=== PATIENT | male | born 1960 | race African-American/Black ===

== ENCOUNTER 2021-03-15 18:08 | Inpatient (IN) | payer OTHER ==
[~2021-03-15] VITALS: Ht 188 cm; Wt 104.3 kg
[~2021-03-15 18:08] MED LIST: CARV12.545 PO; FURO80TA87 PO; HYDR-4133 PO
[2021-03-15 19:52] LABS: BASOPHILS % 1.4 % (0.0-2.0); EOSINOPHILS % 0.2 % (0.0-5.0); HEMATOCRIT. 29.4 % (42.0-52.0); HEMOGLOBIN. 8.8 g/dL (14.0-18.0); LYMPHOCYTES % 22.6 % (20.0-50.0); MEAN CORPUSCULAR HEMOGLOBIN 19.2 pg (28.0-32.0); MEAN CORPUSCULAR VOLUME 64.3 fL (80.0-94.0); MEAN PLATELET VOLUME 8.6 fl (7.4-10.4); MONOCYTES % 12.5 % (2.0-8.0); NEUTROPHILS % 63.3 % (40.0-76.0); PLATELET 196 x1000/uL (130-400); RED BLOOD CELL COUNT 4.58 mill/uL (4.7-6.1); RED CELL DISTRIBUTION WIDTH 25.2 % (11.6-14.6)
[2021-03-15 19:59] LABS: CHLORIDE 101 mEq/L (98-107)
[2021-03-15 20:24] LABS: PLATELET ESTIMATE NORMAL
[2021-03-15 20:41] LABS: CLARITY URINE CLEAR (CLEAR); COLOR URINE DARK YELLOW (YELLOW); KETONES URINE NEGATIVE (NEGATIVE); LEUKOCYTE ESTERASE URINE NEGATIVE (NEGATIVE); NITRITE URINE NEGATIVE (NEGATIVE); OCCULT BLOOD URINE NEGATIVE (NEGATIVE); PH URINE 5.5 (4.5-8.0); PROTEIN URINE NEGATIVE (NEGATIVE); SPECIFIC GRAVITY URINE 1.015 (1.005-1.030)
[2021-03-15] MEDS ORDERED: FUROSEMIDE 40MG/4ML VIAL IVP ONE (20:45)
[2021-03-15] MEDS ORDERED: ASPIRIN 325MG EC TABLET PO ONE (23:15)
[2021-03-16] VITALS: BP 125/101
[2021-03-16 00:15] VITALS: BP 123/101
[2021-03-16 04:00] VITALS: BP 136/100
[2021-03-16 08:00] VITALS: BP 115/80
[2021-03-16] MEDS ORDERED: ENOXAPARIN 30MG/0.3ML SYR SUBCUT SCH (09:00)
[2021-03-16] MEDS ORDERED: ASPIRIN 81MG TABLET PO SCH (09:00)
[2021-03-16] MEDS ORDERED: ENOXAPARIN 120MG/0.8ML SYR SUBCUT SCH (09:00)
[2021-03-16] MEDS ORDERED: CARVEDILOL 12.5MG TABLET PO SCH (09:00)
[2021-03-16] MEDS ORDERED: FUROSEMIDE 40MG/4ML VIAL IVP SCH (09:00)
[2021-03-16] MEDS ORDERED: ENOXAPARIN 40MG/0.4ML SYR SUBCUT SCH (09:00)
== END 2021-03-16 14:15 | DRG 133 ==
LOC: ER 18:08 → 5WST 23:08 → ENRESERV 23:34
PROVIDERS: ADMIT Internal Medicine; ATTEND Internal Medicine
DX: J96.00 Acute respiratory failure, unspecified whether with hypoxia or hypercapnia (principal); I50.23 Acute on chronic systolic (congestive) heart failure; I27.20 Pulmonary hypertension, unspecified; E87.1 Hypo-osmolality and hyponatremia; I42.9 Cardiomyopathy, unspecified; I11.0 Hypertensive heart disease with heart failure; D64.9 Anemia, unspecified; I48.91 Unspecified atrial fibrillation; I34.0 Nonrheumatic mitral (valve) insufficiency; Z79.84 Long term (current) use of oral hypoglycemic drugs; Z79.899 Other long term (current) drug therapy
CPT/HCPCS: 36415; 71045; 80053; 81003; 83880; 84484; 85025; 93005; 99285; J1650; J1940; A4315